=== PATIENT | female | born 1945 | race Caucasian/White ===

== ENCOUNTER → 2016-05-24 | Outpatient (CLI) | payer MEDICARE, MEDICAID ==
[~2016-05-24] MED LIST: ALDACTONE50 MG PO; ASA CHILDREN'S81 MG PO; BETAPACE DPS80 MG PO; CALTRATE-600 D600 MG PO; CEPACOL SORE T1 EAC1 PO; COLACE-DPS100 MG PO; COREG DPS6.25 MG PO; COUMADIN DPS2 MG PO; COUMADIN2.5 MG PO; CRESTOR10 MG PO; CRESTOR5 MG PO; DAILY MULTIPLE1 EAC1 PO; DELTASONE DPS10 MG PO; DUONEB DPS3 ML IH; KLOR-CON M2020 ME1 PO; LASIX DPS40 MG PO; LOVENOX DP80 MG/0.8 PO; MAALOX DPS30 ML PO; MAG-OX400 MG PO; METAMUCIL POWD684 GM PO; MIRALAX PACKET17 GM PO; NORCO 5-325 TA1 EACH PO; PEPCID DPS20 MG PO; SURFAK DPS240 MG PO; THERA1 EACH PO; TYLENOL DPS325 MG PO
== END | disposition home or self-care (01) ==
LOC: RAD.S 14:30
DX: R14.0 Abdominal distension (gaseous) (principal); R18.8 Other ascites; J90 Pleural effusion, not elsewhere classified

== ENCOUNTER 2016-06-01 16:01 | Inpatient (IN) | payer MEDICARE, MEDICAID ==
[~2016-06-01] VITALS: Ht 172.7 cm; Wt 77.9 kg
--- NOTE | ~2016-06-01 | ECH ---
Transthoracic Echocardiography Report (TTE) Demographics Patient Name SHU PEREZ V Date of Study 06/02/2016 Patient Number [id number] Visit Number [id number] Date of 1945 Room Number 418 Accession Number [id number] Gender Female Age 70 year(s) Referring Giorgi Cleveland Forensic Psychiatrist Daisy Huerta JACOB Physician Physician Interpreting Amando Crooks MD Scaler Packer Physician Supervising Ordering Physician Giorgi Cleveland MD/CRISS JONES Nurse Stress Last Model Department Supervisor Conclusions Summary Technically good exam. The estimated left ventricular ejection fraction is 15-20%. Global hypokinesis. The left ventricle is severly dilated . Moderate septal left ventricular hypertrophy. Paradoxical septal motion. Mildly reduced right ventricular function. Moderately dilated right ventricle. The left atrium is severely dilated by LA volume index measurement. The right atrium is severely dilated. The patient is known to have a St. Farrukh mechanical mitral valve with a mean gradient of 3.6mmHg. The prosthetic mitral valve functions normally with no perivalvular leak. There is trivial aortic regurgitation by color Doppler. Severe tricuspid regurgitation by color Doppler with normal pulmonary pressures. Trivial pulmonic valve regurgitation by color Doppler. Procedure Type of Study TTE procedure:Echo Complete SF. Procedure Date Date: 06/02/2016 Start: 10:14 AM Technical Quality: Adequate visualization Indications:Congestive heart failure, Prosthetic valve function and Atrial fibrillation. Additional Indications:mixed cardiomyopathy, AICD Appropriate Use Criteria: 9 Height: 68 inches Weight: 185 pounds BSA: 1.98 m Rhythm: Paced HR: 70 bpm BP: 87/53 mmHg M-Mode/2D Measurements LV Diastolic Dimension: 6.7 cm LV Systolic Dimension: 5.5 cm LV Septum Diastolic: 1.38 cm LV PW Diastolic: 0.86 cm AO Root Dimension: 3.22 cm Cardiac Output: 1.76 l/min LA Dimension: 5.62 cm Cardiac Index: 0.89 l/min*m RV Diastolic Dimension: 4.28 cm LA volume index: 61 ml/m LVOT: 2.09 cm LVOT VTI: 7.35 cm RV Base: 8.1 cm LV Stroke volume: 25.2 ml RV Mid: 5 cm LV Stroke volume index: 12.73 ml/m RV Length: 9.2 cm Doppler Measurements AV Peak Velocity: 0.95 m/s MV Peak E-Wave: 1.34 m/s AV Peak Gradient: 3.61 mmHg AV Mean Gradient: 2.63 mmHg MV P1/2t: 65.2 msec LVOT Peak Velocity: 0.43 m/s MV Mean Gradient: 3.6 mmHg AV Area (Continuity):1.55 cm MV Deceleration Time: 248.6 msec TR Velocity:1.27 m/s MV Area (PHT): 3.37 cm TR Gradient:6.46 mmHg PV Peak Velocity: 0.42 m/s Estimated RAP:15 mmHg PV Peak Gradient: 0.71 mmHg Estimated RVSP: 21 mmHg Estimated PASP: 21.46 mmHg RA Area: 55.9 cm Findings Left Ventricle The left ventricle is severly dilated . Moderate septal left ventricular hypertrophy. Paradoxical septal motion . Right Ventricle Mildly reduced right ventricular function. Moderately dilated right ventricle. Device lead noted in the right ventricle. Left Atrium The left atrium is severely dilated by LA volume index measurement. Right Atrium The right atrium is severely dilated. Device lead seen in the right atrium. Mitral Valve The patient is known to have a St. Farrukh mechanical mitral valve with a mean gradient of 3.6mmHg. The prosthetic mitral valve functions normally with no perivalvular leak. Aortic Valve Normal aortic valve structure and function. There is trivial aortic regurgitation by color Doppler. Tricuspid Valve Normal appearing tricuspid valve. Severe tricuspid regurgitation by color Doppler with normal pulmonary pressures. Pulmonic Valve Normal pulmonic valve structure and function. Trivial pulmonic valve regurgitation by color Doppler. Pericardial Effusion No evidence of pericardial effusion. Miscellaneous Visualized portions of the aortic root and ascending aorta appear normal in size. Contractility Score LV regional wall motion:(0-Non visualized 1-Normal 2-Hypokinesis 3-Akinesis 4-Dyskinesis 5-Aneurysm) Signature
[2016-06-07] MEDS ORDERED: PEPCID DPS20 MG PO (06:14)
--- NOTE | 2016-06-09 16:05 | CO ---
ADMIT: 06/01/2016 RM/LOC: 418 [facility] MR#: [id number] [address] [address] SHU PEREZ V [address] [place] [address] Consultation SEX: F AGE: 70 : 1945 DATE OF CONSULTATION: 06/03/2016 ATTENDING PHYSICIAN: Hilario Moreno CONSULTING PHYSICIAN: Navjot Rao MD REASON FOR EVALUATION: Diuretic refractory ascites. HISTORY OF PRESENT ILLNESS: Shu Perez is a 70-year-old nonsmoking white female with a history of extensive cardiovascular disease. She does have a previous abdominal surgery of cholecystectomy with complications, was converted open, did have severe blood loss. Also, did have development of large rectal hemorrhoids requiring surgical intervention, as well as did have substantial blood loss with this as well. She tells me her last surgery was in 2016 in September. Since this time, she has noticed she has had increased abdominal girth and has been at times quite yellow. She has been following with her local physician, Dr. Kingston Guajardo, as well as has been seeing her grain elevator clerk, Dr. Lb Faulkner. Recently, Dr. Guajardo did obtain a CT scan of her abdomen and pelvis and noted to have large ascites. With these increasing abdominal girth and increasing ascites, she has made substantial effort with fluid restricting herself, she tells, to approximately 24 ounces of fluid a day as well as taking her diuretic regimen faithfully. She had no improvement of her ascites and heart failure, and ultimately was admitted to [facility] on June 01. She has been receiving IV diuretic therapy as well as Aldactone, however, has basically a very minimal response of her abdominal ascites. Dr. Rand did request that I evaluate the patient for this refractory ascites. Did proceed with initial evaluation with abdominal ultrasound as well as a therapeutic and diagnostic paracentesis here, able to withdraw approximately 3 L. I evaluated her at her bedside post paracentesis. She states that she feels much improved. Says she feels she can breathe better and she feels that she actually has a belly button and this does make her happy. She does tell me that she had developed an umbilical hernia as well as some substantial hemorrhoids. She notices also that she is quite yellow. She does not have any redness of her palms. No rectal bleeding currently, no hemoptysis or hematemesis. However, she states she gets little spidery veins on her chest. She is a very nice lady. She is . She does live with her daughter and son-in-law here in town. 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 She does not have any high risk sexual behavior with multiple sexual partners. She does not have extensive homemade piercings or tattoos. She did have a blood transfusion approximately 55 years ago with her first child and then again in 2015 following her rectal surgery with hemorrhoids. She had a colonoscopy approximately five years ago which she reports was normal, and she did also have a hysterectomy secondary to fibroids, never having an abnormal pelvic exam. She states she still does have her ovaries. She is very delinquent on her mammogram and has not had one for many years, and she had not been doing one because she stated she lost so much weight that she didn't think her ADMIT: 06/01/2016 RM/LOC: 418 [facility] MR#: [id number] [address] [address] SHU PEREZ V [address] [place] [id number] Consultation SEX: F AGE: 70 : 1945 breasts were large enough to do a mammogram. She does not have extensive alcohol use currently nor does she have in the past. States that she has had substantial weight loss with muscle wasting of her upper and lower extremities. She states that when she looks in the mirror that she looks like a malnourished child that is sometimes on television. She states that she noticed that she was really getting bad September of last year. She has not had any like viral illnesses. No abnormal sweating or anything of that nature. No visual changes or headaches. No mental status changes either. Otherwise, had been in her normal state of health. She does have very complex medical conditions, however, she had been relatively stable. PAST MEDICAL HISTORY: 1. CABG in 1994. 2. Mechanical mitral valve in 1994. 3. Radiofrequency ablation in 2007, Bi-V ICD. 4. Chronic systolic heart failure. 5. Chronic kidney disease, stage 3. 6. Open cholecystectomy. 7. Rectal hemorrhoids. 8. Jaundice. 9. Hyperbilirubinemia. 10.Abdominal ascites. 11.History of elevated LFTs. MEDICATIONS: 1. Aldactone. 2. Aspirin. 3. Betapace. 4. Caltrate. 5. Coreg. 6. Coumadin. 7. Klor-Con. 8. Mag-Ox. 9. Pepcid. 10.Therapeutic multivitamin. 11.Lasix. 12.Nitro. 13.Normal saline p.r.n. ALLERGIES: LATEX, CODEINE, AMIODARONE, AND DILTIAZEM. FAMILY HISTORY: Father at age 51 after an accident at a grain elevator, did from an infection and gangrene. Mother due to extensive cardiovascular history, and she has multiple siblings. SOCIAL HISTORY: She is . She does not smoke or do drugs or anything like that and does not drink much. She smoked very shortly after her due to an accident, but has not smoked for a long time. She lives with ADMIT: 06/01/2016 RM/LOC: 418 [facility] MR#: [id number] [address] [address] SHU PEREZ V [address] [place] [address] Consultation SEX: F AGE: 70 : 1945 her daughter and son-in-law. 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 She is otherwise a pretty happy lady, but she is very concerned that she has lost so much weight and feels that her arms are like skin and bones and she has a very rotund belly and that has concerned her. She is also very sad today about the loss of her doctor. REVIEW OF SYSTEMS: Complete review of systems is reviewed, per HPI. PHYSICAL EXAMINATION: VITAL SIGNS: Blood pressure is 96/68, pulse 70, respiratory rate is 14, temp is 97.8, 99% on room air. GENERAL: She is alert and oriented x3. No acute distress. HEENT: Normocephalic, atraumatic. Extraocular muscles intact. She has jaundiced sclerae, her skin is jaundiced. Mucous membranes are jaundiced as well. HEART: Regular. She has a mechanical valve. LUNGS: Clear to auscultation bilaterally, very mildly distant. CHEST: She does have some spider angiomas on her chest. ABDOMEN: I do not see any caput medusa on her abdomen. Soft. It is distended. It is nontender. She does have a hernia sac noted near her umbilicus. EXTREMITIES: She has no clubbing or cyanosis. She does have some edema. She has extensive muscle wasting of her upper extremities. She has no palmar erythema. LABORATORY AND X-RAY DATA: Her sodium is 139, potassium is 3.8, chloride is 102, bicarb is 27, BUN is 16, creatinine is 1.2, glucose is 80, calcium is 8.8, total protein 6.6, albumin is 2.9, AST is 25, ALT is 13, alkaline phosphatase is 59, bilirubin is 2.7. Ultrasound with a nodular hepatomegaly. She does have abnormal Dopplers of her liver. Her INR is 2.79. Hepatitis C antibody is negative. Her SAG is literally 1.1 exactly, so it really nondiagnostic. She has no evidence of SBP and her Gram-stain is negative. CBC from yesterday; white blood cells are 3.2, hemoglobin is 10.8, platelets are 107. Reviewed previous images in the system. She has had an abnormal liver ultrasound with fatty liver infiltration with kind of questionable hepatitis since 2003. She has had noted ascites since 2007. She did have a short course of elevated LFTs in [address] scan with no signs of masses or malignancy. ASSESSMENT AND PLAN: 1. Abdominal ascites. 2. Jaundice. 3. Chronic systolic heart failure. 4. Stage 3 chronic kidney disease. The patient does have a physical exam as well as a history suggesting hepatic cirrhosis. Her serum albumin gradient is 1.1 exactly, therefore, it is unclear, based on that, whether this is portal hypertension or not. However, clinically does support cirrhosis as her diagnosis. We do have cytology ADMIT: 06/01/2016 RM/LOC: 418 [facility] MR#: [id number] [address] [place] [id number] SHU PEREZ V [address] [place] [address] Consultation SEX: F AGE: 70 : 1945 pending. Hepatitis C evaluation is negative thus far. I suspect that she did have NAFLD in 2003 potentially versus MEYERS versus chronic hepatic congestion secondary to right heart failure. We will go ahead and evaluate her further with further viral hepatitis panels as well as we will await her cytology and alpha fetoprotein levels. She is currently on Lasix as well as she is on Aldactone at this point, as well as blood pressures are borderline. She does appear to have truly diuretic refractory ascites. She would likely benefit from a liver biopsy at some point. She will avoid hepatotoxins. She will use Tylenol very judiciously and she will not drink or anything of that nature. Her labs are consistent, she is noted to have thrombocytopenia as well which has been ongoing since about 2014. I do discuss with her that I think that her ascites is likely in part due to hepatic cirrhosis. We will await our further laboratories and we will adjust our plan based on the clinical progress. Navjot Rao MD/ namita JOB #: [id number] CC: Hilario Moreno, Attending Physician Kingston Guajardo, Family Physician Simone Rand MD
--- NOTE | 2016-07-01 12:32 | DS ---
ADMIT: 06/01/2016 RM/LOC: 418 [facility] MR#: [id number] [address] [address] SHU PEREZ V [address] [place] [address] General Discharge Summary SEX: F AGE: 70 : 1945 ADMISSION DATE: 06/01/2016 DISCHARGE DATE: 06/06/2016 REASON FOR ADMISSION: Systolic heart failure exacerbation. This is Natalya Chris RN, scribing for Dr. Moreno. PROCEDURES PERFORMED: On 06/03/2016, by Interventional Radiology, Dr. Ramos. Ultrasound-guided paracentesis. CONSULTS OBTAINED: On 06/03/2016, Dr. Navjot Rao consulted for diuretic refractory ascites. FINAL DIAGNOSES: 1. Biventricular congestive heart failure. 2. Prior mechanical mitral valve replacement. 3. Coronary artery disease, status post coronary bypass graft. 4. Ascites. 5. Severe tricuspid regurgitation. 6. Status post BiV ICD. HOSPITAL COURSE: Shu is a very pleasant, 70-year-old female, well-known to [facility], who presented to [facility] for routine office visit for her history of biventricular congestive heart failure. She had increasing shortness of breath and abdominal girth, and did actually have a CT scan of her abdomen by primary care previously showing large ascites with anasarca mesenteric induration and small bilateral pleural effusions on 05/24. Lasix was increased for four days at that time, however, she did not feel that helped at all. She actually denied any increased urine output and was feeling worse. Her weight was stable, but she clearly had abdominal girth increase. She also had increased shortness of breath, but no chest discomfort. She reports quite a bit of abdominal pain in upper and lower quadrants. She has history of mitral valve replaced with a mechanical valve and is on Coumadin for that. Given her significant abdominal girth increase despite outpatient diuretics, it was decided at that point, she would be admitted for inpatient treatment, IV diuresis, as well as close monitoring of her lab work, and possible other testing as well. She was placed on telemetry status, placed on fluid restriction with a 2 g low-sodium diet. Lab work was obtained. Demonstrating appropriate levels of liver enzymes and creatinine as well as potassium. Her INR was 2.62 with a hemoglobin of 10.8 on 06/02/2016. Initially, she was started on 80 mg Lasix IV b.i.d. with potassium as well to supplement, and she did have some mild response with a negative I and O of 940 to that. She does have some lower blood pressures at 94/52 on 06/02/2016, so her Coreg was decreased to 12.5 mg p.o. as well as Aldactone at 12.5 p.o. daily. Question of a right-sided heart failure versus underlying liver disease contributing as well. She feels that her dry weight is around 170 pounds, and currently she is at 185 pounds. On 06/03/2016, ANGELITO was consulted for her ascites given her lack of improvement ADMIT: 06/01/2016 RM/LOC: 418 [facility] MR#: [id number] [address] [place] [id number] [facility] [place] [address] General Discharge Summary SEX: F AGE: 70 : 1945 despite mild diuresis, and Dr. Rao was consulted and his orders and recommendations were followed throughout the hospital course. She was on telemetry status at this point. Lab work included sodium of 139, potassium 3.8, BUN 16, creatinine 1.2, glucose 80, AST 25, ALT 13. Echocardiogram was repeated, showing EF of 15% to 20% with global hypokinesis with normal function of her mechanical mitral valve. Dr. Rao ordered abdominal ultrasound with Doppler of liver as well as paracentesis where 3000 mL of ascites fluid was removed by Interventional Radiology and sent for cytology, which did not demonstrate malignant cells. Ultrasound showed fatty infiltrate. On 06/04/2016, she did report a little less shortness of breath with removal of fluid. She did have -1400 mL I and O. blood pressure was stable in 97/65. She was afebrile. Lab work was stable with hemoglobin 10.8, and creatinine of 1.2. Diuresis was continued, question if she needed to follow with Heart Failure Team at [facility] as well as possibility of seeing Gastroenterology and Hepatology. There was some question of liver cirrhosis as well. On 06/05/2016, she still had pain under her ribs with fullness due to fluid. She did have -1800 mL I and O. Diuresis was continued with stable creatinine. On 06/06/2016, she continued to have issues with underlying liver disease, severe biventricular failure, and so it was decided the best plan at this point, would be to transfer to [facility] for formal CHF evaluation as well as Gastroenterology evaluation of her liver. She was agreeable to that plan and will be transferred via ambulance. Her weight on this day was 171 pounds. She was transferred in stable condition with transfer medication list not available at this time. Natalya Chris RN / Hilario Moreno MD / joãol JOB #: [id number] CC: Hilario Moreno MD, Attending Physician Kingston Guajardo MD, Family Physician
== END 2016-06-06 09:03 | disposition short-term general hospital (02) | DRG 292 ==
LOC: 4PCU 16:01
PROVIDERS: ADMIT Internal Medicine Cardiovascular Disease
PROC: 0W9G3ZX Drainage of Peritoneal Cavity, Percutaneous Approach, Diagnostic (ICD-10-PCS; principal; 2016-06-03)
DX: I50.43 Acute on chronic combined systolic (congestive) and diastolic (congestive) heart failure (principal); R18.8 Other ascites; K76.6 Portal hypertension; I48.92 Unspecified atrial flutter; N18.3 Chronic kidney disease, stage 3 (moderate); R17 Unspecified jaundice; K74.60 Unspecified cirrhosis of liver; I07.1 Rheumatic tricuspid insufficiency; I25.5 Ischemic cardiomyopathy; E78.5 Hyperlipidemia, unspecified; M79.1 Myalgia; I48.2 Chronic atrial fibrillation; I25.10 Atherosclerotic heart disease of native coronary artery without angina pectoris; K42.9 Umbilical hernia without obstruction or gangrene; Z95.1 Presence of aortocoronary bypass graft; Z95.2 Presence of prosthetic heart valve; Z95.810 Presence of automatic (implantable) cardiac defibrillator; Z79.82 Long term (current) use of aspirin; Z79.01 Long term (current) use of anticoagulants; Z66 Do not resuscitate; Z98.1 Arthrodesis status; Z87.891 Personal history of nicotine dependence